=== PATIENT | female | born 1965 | race Caucasian/White ===

== ENCOUNTER 2016-09-13 11:06 | Emergency (ER) | payer SELFPAY ==
[2016-09-13] MEDS ORDERED: DEXAMETHASONE SOD PHOSPHATE INJ 4 MG/1 ML VIAL IM ONE (12:20)
[2016-09-13] MEDS ORDERED: ONDANSETRON 4 MG TAB.RAPDIS PO ONE (12:20)
--- NOTE | 2016-09-13 12:48 | ER Document Report ---
HPI - HPI Patient complains to provider of: Sore throat fever vomiting Onset: Other - 2 days Quality of pain: Achy Severity: Severe Pain Level: 5 Context: Patient presents emergency department with complaints of sore throat fever chills since Wednesday. Patient also reports she has been vomiting. Last vomited yesterday. Denies exposure to strep. Associated Symptoms: Fever, Vomiting, Sore throat Exacerbated by: Denies Relieved by: Denies Similar symptoms previously: No Recently seen / treated by doctor: No - DERM Skin Color: Normal Past Medical History - General Information source: Patient Last Menstrual Period: August 15, 2016 - Social History Smoking Status: Current Every Day Smoker Cigarette use (# per day): Yes Chew tobacco use (# tins/day): No Frequency of alcohol use: None Drug Abuse: None Occupation: Lives with: Family Family History: Reviewed & Not Pertinent Patient has suicidal ideation: No Patient has homicidal ideation: No - Medical History Medical History: Negative Renal/ Medical History: Denies: Hx Peritoneal Dialysis Surgical Hx: Negative Vertical Provider Document - CONSTITUTIONAL Agree With Documented VS: Yes Exam Limitations: No Limitations General Appearance: WD/WN, No Apparent Distress - nontoxic looking - INFECTION CONTROL TRAVEL OUTSIDE OF THE [place] IN LAST 30 DAYS: No - HEENT HEENT: Atraumatic, Normocephalic, Pharyngeal Exudate, Pharyngeal Erythema - No peritonsillar abscess good clear voice no trismus. negative: Conjuctival Injection, Pharyngeal Tenderness, Tympanic Membrane Red, Tympanic Membrane Bulging - NECK Neck: Normal Inspection, Supple. negative: Lymphadenopathy-Left, Lymphadenopathy-Right - RESPIRATORY Respiratory: Breath Sounds Normal, No Respiratory Distress O2 Sat by Pulse Oximetry: 98 - CARDIOVASCULAR Cardiovascular: Tachycardia - GI/ABDOMEN Gastrointestinal: Abdomen Soft, Abdomen Non-Tender - MUSCULOSKELETAL/EXTREMETIES Musculoskeletal/Extremeties: RHONDA CADENA - NEURO Level of Consciousness: Awake, Alert, Appropriate Motor/Sensory: No Motor Deficit - DERM Integumentary: Warm, Dry Course - Re-evaluation Re-evalutation: 09/13/16 Patient drinking two glasses of water without problems, instructed on negative strep test with throat culture pending we will treat with Zithromax she is allergic to penicillin. Patient instructed on pushing fluids follow-up with primary care provider or return here for further symptoms, trouble swallowing. She verbalized understanding. - Vital Signs Vital signs: Temp Pulse Resp BP Pulse Ox 99.6 F 121 H 18 153/86 H 98 09/13/16 11:19 09/13/16 11:19 09/13/16 11:19 09/13/16 11:19 09/13/16 11:19 Discharge - Discharge Clinical Impression: Sore throat, Tonsillar exudate, Elevated blood pressure reading Condition: Stable Disposition: HOME, SELF-CARE Instructions: Sore Throat ([facility]), Steroid Medication Injection, Acetaminophen Additional Instructions: *You have been evaluated for a sore throat, tonsillar exudate, elevated blood pressure reading *Take medication as prescribed *Warm salt water gargles and throat lozenges for comfort *Change toothbrush after two days of antibiotics *Do not let anyone drink/eat after you *Good hand washing *Monitor your temperature take tylenol as indicated *Follow-up with a primary care provider within one week for recheck *Return to ED for worsening condition change, needs Monitor your blood pressure. Your blood pressure was elevated today. This may be because you were anxious, in pain or because you need medication. It is important to follow up with your primary care provider for full evaluation. Prescriptions: Azithromycin [Zithromax 250 mg Tablet] 250 mg PO DAILY #5 tablet Forms: Elevated Blood Pressure, Return to Work
[2016-09-13] MEDS ORDERED: AZITHROMYCIN 250 MG TABLET PO ONE (13:10)
[2016-09-13] MEDS ORDERED: ACETAMINOPHEN 325 MG TABLET PO ONE (13:17)
[2016-09-13 14:04] VITALS: BP 156/81
== END 2016-09-13 14:04 | disposition home or self-care (01) ==
LOC: ER 11:06
DX: J02.9 Acute pharyngitis, unspecified (principal); R03.0 Elevated blood-pressure reading, without diagnosis of hypertension; R50.9 Fever, unspecified; R11.10 Vomiting, unspecified; F17.210 Nicotine dependence, cigarettes, uncomplicated
CPT/HCPCS: 99283; 96372; 87070; 87880; J1100; S0119

== ENCOUNTER → 2017-02-16 | Outpatient (CLI) | payer OTHER ==
--- NOTE | 2017-02-16 19:15 | RADIOLOGY REPORT (SQ) ---
EXAM DESCRIPTION: ANKLE LEFT COMPLETE COMPLETED DATE/TIME: 02/16/2017 6:54 pm REASON FOR STUDY: INJURY OF LEFT ANKLE, INITIAL ENCOUNTER COMPARISON: None. NUMBER OF VIEWS: Three views. TECHNIQUE: AP, lateral, and oblique radiographic images acquired of the left ankle. LIMITATIONS: None. FINDINGS: MINERALIZATION: Normal. BONES: No acute fracture or dislocation. There is some cortical irregularity at the level of the dis augie end of the medial malleolus which is not felt to represent a fracture. JOINTS: No effusions. SOFT TISSUES: No soft tissue swelling. No foreign body. OTHER: Minimal Achilles tendon spurring is identified. IMPRESSION: NEGATIVE STUDY OF THE LEFT ANKLE. NO RADIOGRAPHIC EVIDENCE OF ACUTE INJURY. TECHNICAL DOCUMENTATION: JOB ID: [id number] [employer]- All Rights Reserved
== END ==
LOC: RAD 18:32
PROVIDERS: ATTEND Nurse Practitioner Acute Care
DX: S99.912A Unspecified injury of left ankle, initial encounter (principal); X58.XXXA Exposure to other specified factors, initial encounter

== ENCOUNTER 2018-06-03 15:34 | Inpatient (IN) | payer SELFPAY ==
[2018-06-03] MEDS ORDERED: PREDNISONE 20 MG TABLET PO ONE (16:39)
[2018-06-03] MEDS ORDERED: IPRATROPIUM/ALBUTEROL 0.5-2.5 MG/3 ML AMPUL NEB ONE ×2 (16:39→18:43)
--- NOTE | 2018-06-03 16:43 | ER Document Report ---
HPI - HPI Pain Level: 2 - RESPIRATORY Respiratory: REPORTS: Coughing - REPRODUCTIVE Reproductive: DENIES: : <ELADIO WILSON - Last Filed: 06/03/18 18:22> - HPI Patient complains to provider of: difficulty breathing, ear drainage Context: 52-year-old female with hypertension and COPD which has been untreated for years because she does not have a primary care doctor presents to the emergency department for respiratory difficulty and bilateral ear drainage times 5 days. She complains of fevers, chills, sore throat productive cough, chest wall pain with coughing not at rest. She denies headache, nausea, vomiting, diarrhea, any other symptoms. <BRYAN ALCAZAR - Last Filed: 06/04/18 02:40> <MARTIN STEWARD - Last Filed: 06/04/18 05:13> - HPI Time Seen by Provider: 06/03/18 16:27 Past Medical History - Social History Smoking Status: Current Every Day Smoker Family History: Reviewed & Not Pertinent Patient has suicidal ideation: No Patient has homicidal ideation: No - Past Medical History Cardiac Medical History: Reports: Hx Hypertension Pulmonary Medical History: Reports: Hx COPD Renal/ Medical History: Denies: Hx Peritoneal Dialysis <ELADIO WILSON - Last Filed: 06/03/18 18:22> Vertical Provider Document - CONSTITUTIONAL Agree With Documented VS: Yes Exam Limitations: No Limitations, Physical Impairment General Appearance: No Apparent Distress - INFECTION CONTROL TRAVEL OUTSIDE OF THE [place] IN LAST 30 DAYS: No - HEENT HEENT: Atraumatic, Normocephalic. negative: Pharyngeal Exudate, Pharyngeal Tenderness, Pharyngeal Erythema, Tympanic Membrane Red, Tympanic Membrane Bulging - NECK Neck: Normal Inspection, Supple. negative: Lymphadenopathy-Left, Lymphadenopathy-Right - RESPIRATORY Respiratory: No Respiratory Distress, Chest Non-Tender, Rhonchi, Wheezing - CARDIOVASCULAR Cardiovascular: Regular Rate, Regular Rhythm, No Murmur - BACK Back: Normal Inspection - MUSCULOSKELETAL/EXTREMETIES Musculoskeletal/Extremeties: RHONDA CADENA - NEURO Level of Consciousness: Awake, Alert, Appropriate Motor/Sensory: No Motor Deficit - DERM Integumentary: Warm, Dry, No Rash <ELADIO WILSON - Last Filed: 06/03/18 18:22> Course - Re-evaluation Re-evalutation: 06/03/18 18:22 Spoke with radiologist regarding patient's x-ray report and need for additional imaging. Radiologist advises additional labs to further evaluate patient's symptoms given her history of COPD and noncompliance with antihypertensive medication. Does not feel that IV contrast would be beneficial and states that CT could be obtained noncontrast. - Vital Signs Vital signs: Temp Pulse Resp BP Pulse Ox 98.5 F 107 H 17 184/89 H 100 06/03/18 16:18 06/03/18 16:18 06/03/18 16:18 06/03/18 16:18 06/03/18 16:18 <ELADIO WILSON - Last Filed: 06/03/18 18:22> - Re-evaluation Re-evalutation: 06/03/18 18:41 Handoff completed, I took over care of the patient from Eladio Wilson. Discussed chest x-ray results studies and labs have been ordered. She does have diffuse end expiratory wheezing on exam and will order another DuoNeb. 06/03/18 18:43 06/03/18 20:06 CT chest resulted, consistent with atypical pneumonia. Will initiate antibiotics. Labs back and patient is hypokalemic at 2.4. Plan is to give 3 runs of potassium chloride 20 mEq and 40 mEq p.o. Patient will be transferred over to the main side. Plan is to obtain an EKG and put her on cardiac monitoring here in the interim. 06/03/18 20:[address] Bueno I made her aware of patient's penicillin allergy and reaction that her throat closes up and she cannot breeze. Based on available literature benefits outweigh the risks and I will give the Rocephin 500 mg IV 1 time as patient will be continuously monitored and transferred to [facility] main side. 06/04/18 02:41 Dr. Steward ultimately assumed care of the patient. I briefly discussed patient with him after his course of treatments. - Vital Signs Vital signs: Temp Pulse Resp BP Pulse Ox 98.5 F 107 H 17 184/89 H 100 06/03/18 16:18 06/03/18 16:18 06/03/18 16:18 06/03/18 16:18 06/03/18 16:18 - Laboratory Result Diagrams: 06/03/18 19:17 06/03/18 19:17 <BRYAN ALCAZAR - Last Filed: 06/04/18 02:40> - Re-evaluation Re-evalutation: 06/04/18 03:44 Patient continues to have desaturations and her oxygen. I placed her on nasal cannula. Her O2 saturations are going down to 87%. We will give another breat geno treatment. I suspect that she most likely will require admission based on her recurrent oxygen desaturations. - Vital Signs Vital signs: Temp Pulse Resp BP Pulse Ox 98.6 F 114 H 19 140/72 H 91 L 06/03/18 21:14 06/03/18 21:14 06/04/18 00:01 06/04/18 03:00 06/04/18 03:01 - Laboratory Result Diagrams: 06/03/18 19:17 06/03/18 19:17 Laboratory results interpreted by me: 06/03/18 06/03/18 19:17 19:17 WBC 14.2 H RDW 14.4 H Seg Neutrophils % 89.1 H Lymphocytes % 6.5 L Absolute Neutrophils 12.7 H Sodium 136.3 L Potassium 2.4 L* Chloride 96 L Glucose 153 H Direct Bilirubin 0.9 H AST 39 H Alkaline Phosphatase 130 H <MARTIN STEWARD - Last Filed: 06/04/18 05:13> Discharge <ELADIO WILSON - Last Filed: 06/03/18 18:22> <BRYAN ALCAZAR - Last Filed: 06/04/18 02:40> - Discharge Unit Admitted: Telemetry <MARTIN STEWARD - Last Filed: 06/04/18 05:13> - Discharge Clinical Impression: Hypokalemia Pneumonia Qualifiers: Pneumonia type: due to unspecified organism Laterality: bilateral Lung location: unspecified part of lung Qualified Code(s): J18.9 - Pneumonia, unspecified organism Condition: Stable Disposition: ADMITTED OBSERVATION Referrals: LUIS CARLOS SCHNEIDER NP [Primary Care Provider] - Follow up as needed
[2018-06-03] MEDS: ALBUTEROL SULFATE 0.083% NEB 2.5 MG/3 ML AMPUL NEB SCH ×2 (16:48→17:43)
--- NOTE | 2018-06-03 18:01 | RADIOLOGY REPORT (SQ) ---
EXAM DESCRIPTION: CHEST 2 VIEWS COMPLETED DATE/TIME: 06/03/2018 5:34 pm REASON FOR STUDY: cough COMPARISON: 09/11/2009 EXAM PARAMETERS: NUMBER OF VIEWS: two views TECHNIQUE: Digital Frontal and Lateral radiographic views of the chest acquired. RADIATION DOSE: NA LIMITATIONS: none FINDINGS: LUNGS AND PLEURA: Minimal bibasilar fine heterogeneous and interstitial opacity. MEDIASTINUM AND HILAR STRUCTURES: No masses or contour abnormalities. HEART AND VASCULAR STRUCTURES: Heart normal size. No evidence for failure. BONES: No acute findings. HARDWARE: None in the chest. OTHER: No other significant finding. IMPRESSION: Minimal bibasilar fine heterogeneous and interstitial opacity, of uncertain acute signif icance. This may reflect mild infection or edema or alternately chronic interstitial change. CT can be used to further evaluate if desired and as indicated by clinical signs or symptoms. . TECHNICAL DOCUMENTATION: JOB ID: [id number] [employer]- All Rights Reserved Reading location - IP/workstation name: [email or web address]
[2018-06-03] MEDS ORDERED: ALBUTEROL SULFATE 0.083% NEB 2.5 MG/3 ML AMPUL NEB ONE (18:17)
--- NOTE | 2018-06-03 19:21 | RADIOLOGY REPORT (SQ) ---
EXAM DESCRIPTION: CT CHEST WITHOUT COMPLETED DATE/TIME: 06/03/2018 7:00 pm REASON FOR STUDY: cough, dyspnea COMPARISON: Chest radiograph 06/03/2018 TECHNIQUE: CT scan performed of the chest without intravenous contrast. Images reviewed with lung, soft tissue and bone windows. Reconstructed coronal and sagittal MPR images reviewed. All images st ored on PACS. All CT scanners at this facility use dose modulation, iterative reconstruction, and/or weight based d osing when appropriate to reduce radiation dose to as low as reasonably achievable (ALARA). [facility]: Dose Right [facility]: CareDose [facility]: Dose Right [facility]: Teradose 4D [facility]: Smart [employer] RADIATION DOSE: CT Rad equipment meets quality standard of care and radiation dose reduction techniq ues were employed. CTDIvol: 5.3 mGy. DLP: 203 mGy-cm. mGy. LIMITATIONS: No technical limitations. FINDINGS: LUNGS AND PLEURA: Diffuse reticulonodular densities with relative subpleural sparing are s een involving the right upper, right middle, and right lower lobe more so than the left upper and low er lobes. There is no pneumothorax. There is no pleural effusion. HILAR AND MEDIASTINAL STRUCTURES: No identified masses or abnormal nodes. No obvious aneurysm. HEART AND VASCULAR STRUCTURES: No aneurysm. No pericardial effusion. UPPER ABDOMEN: No significant findings. Limited exam. THYROID AND OTHER SOFT TISSUES: No masses. No adenopathy. BONES: No significant finding. HARDWARE: None in the chest. OTHER: No other significant findings. IMPRESSION: Constellation of findings are most consistent with a multi lobar atypical pneumonia. TECHNICAL DOCUMENTATION: JOB ID: [id number] Quality ID # [id number]: Final reports with documentation of one or more dose reduction techniques (e.g., Au tomated exposure control, adjustment of the mA and/or kV according to patient size, use of iterative reconstruction technique) 2010 [employer]- All Rights Reserved Reading location - IP/workstation name: [email or web address]
[2018-06-03 19:39] LABS: ABSOLUTE BASOPHILS # (AUTO) 0.1 10^3/uL (0.0-0.2); ABSOLUTE LYMPHOCYTES (AUTO) 0.9 10^3/uL (0.5-4.7); ABSOLUTE MONOCYTES (AUTO) 0.6 10^3/uL (0.1-1.4); ABSOLUTE NEUT (AUTO) 12.7 10^3/uL (1.7-8.2); BASOPHILS % (AUTO) 0.5 % (0-2); HEMATOCRIT 40.1 % (36.0-47.0); HEMOGLOBIN 13.8 g/dL (12.0-15.5); LYMPHOCYTES % (AUTO) 6.5 % (13-45); MEAN CORPUSCULAR HEMOGLOBIN 28.7 pg (27.0-33.4); MEAN CORPUSCULAR HGB CONC 34.3 g/dL (32.0-36.0); MEAN CORPUSCULAR VOLUME 84 fl (80-97); MONOCYTES % (AUTO) 3.9 % (3-13); PLATELET COUNT 209 10^3/uL (150-450); RED BLOOD COUNT 4.79 10^6/uL (3.72-5.28); RED CELL DISTRIBUTION WIDTH 14.4 % (11.5-14.0); SEGMENTED NEUTROPHILS % (AUTO) 89.1 % (42-78); TOTAL CELLS COUNTED % (AUTO) 100 %; WHITE BLOOD COUNT 14.2 10^3/uL (4.0-10.5)
[2018-06-03 19:55] LABS: ALANINE AMINOTRANSFERASE 42 U/L (9-52); ALBUMIN 4.1 g/dL (3.5-5.0); ALKALINE PHOSPHATASE 130 U/L (38-126); ANION GAP 14 (5-19); ASPARTATE AMINO TRANSFERASE 39 U/L (14-36); BILIRUBIN,DIRECT 0.9 mg/dL (0.0-0.4); BILIRUBIN,TOTAL 1.3 mg/dL (0.2-1.3); BLOOD UREA NITROGEN 7 mg/dL (7-20); CALCIUM 9.1 mg/dL (8.4-10.2); CARBON DIOXIDE 26 mmol/L (22-30); CHLORIDE 96 mmol/L (98-107); GLUCOSE 153 mg/dL (75-110); SODIUM 136.3 mmol/L (137-145); TOTAL PROTEIN 7.5 g/dL (6.3-8.2)
[2018-06-03 19:59] LABS: POTASSIUM 2.4 mmol/L (3.6-5.0)
[2018-06-03] MEDS ORDERED: POTASSIUM CHLORIDE 10 MEQ CAPSULE.ER PO ONE (20:02)
[2018-06-03] MEDS ORDERED: CEFTRIAXONE INJ 500 MG VIAL IV ONE (20:14)
[2018-06-03] MEDS ORDERED: DOXYCYCLINE HYCLATE INJ 100 MG VIAL IV ONE (20:18)
[2018-06-03] MEDS: POTASSI CL 20 MEQ/50 ML RIDER 20 MEQ/50 ML RTUPB IV SCH (20:49)
[2018-06-03] MEDS ORDERED: NORMAL SALINE 1000 ML 1,000 ML IV ONE (21:08)
[2018-06-03] MEDS ORDERED: CEFTRIAXONE INJ 500 MG VIAL ONE (22:57)
[2018-06-04] MEDS: POTASSI CL 20 MEQ/50 ML RIDER 20 MEQ/50 ML RTUPB IV SCH ×2 (01:28)
[2018-06-04] MEDS ORDERED: IPRATROPIUM/ALBUTEROL 0.5-2.5 MG/3 ML AMPUL NEB ONE (02:19)
[2018-06-04] MEDS: MAGNESIUM SULFATE/D5W 1 GM/100 ML RTUPB IV SCH ×2 (02:29→03:29)
[2018-06-04] MEDS ORDERED: ALBUTEROL SULFATE 0.083% NEB 2.5 MG/3 ML AMPUL NEB ONE (03:45)
[2018-06-04] MEDS ORDERED: METHYLPREDNISOLONE INJ 125 MG/2 ML SDV IV ONE (03:45)
[2018-06-04] MEDS ORDERED: ONDANSETRON 4 MG TAB.RAPDIS PO PRN (05:25)
[2018-06-04] MEDS ORDERED: MAGNESIUM HYDROXIDE SUSP 30 ML UDCUP PO PRN (05:25)
[2018-06-04] MEDS ORDERED: ONDANSETRON HCL INJ/PF 4 MG/2 ML SDV IV PRN (05:25)
[2018-06-04] MEDS ORDERED: MAG HYDROX/AL HYDROX/SIMETH SUSP 30 ML UDCUP PO PRN (05:25)
[2018-06-04] MEDS ORDERED: NALBUPHINE HCL INJ 10 MG/1 ML AMPULE IV PRN (05:31)
[2018-06-04] MEDS ORDERED: ACETAMINOPHEN 325 MG TABLET PO PRN (05:31)
--- NOTE | 2018-06-04 06:17 | PDOC H&P ---
History of Present Illness Admission Date/PCP: LUIS CARLOS SCHNEIDER NP Patient complains of: Dyspnea History of Present Illness: CHARMAINE PALMA is a 52 year old female who presented to the emergency room with a 6-day history of progressively worsening dyspnea with cough. She admits that she began having moderate dyspnea 6 days ago, only occurring with exertion and it has gradually progressed to severe dyspnea for the last 2 days being present at rest and with exertion. In the emergency room she her dyspnea has been accompanied by a harsh paroxysmal cough that is been productive of small amounts of thin yellowish mucus at times. Her cough has been increasing in frequency and in intensity to the point where it is now also severe. She denies all other accompanying symptoms with the exception of anorexia and polydipsia due to increased thirst since the onset of the illness. She denies prior similar episodes and has not identified any aggravating or ameliorating factors for her dyspnea other than she feels more short of breath and has an increased cough wi th any attempted smoking cigarettes. In the emergency room she was found to be significantly hypoxic and required continued oxygen support despite multiple nebulizer treatments and the administration of Solu-Medrol. Because of the patient's hypoxic respiratory failure she was admitted to the hospital for further evaluation and treatment. Past Medical History Cardiac Medical History: Reports: Hypertension - Not on medication Pulmonary Medical History: Reports: Bronchitis, Chronic Obstructive Pulmonary Disease (COPD) Denies: Asthma, Intubation, Respiratory Failure EENT Medical History: Denies: Cataracts, Nose - Epistaxis Neurological Medical History: Denies: Hemorrhagic CVA, Ischemic CVA, Multiple Sclerosis, Seizures Endocrine Medical History: Denies: Diabetes Mellitus Type 1, Diabetes Mellitus Type 2, Hyperthyroidism, Hypothyroidism, Obesity Renal/ Medical History: Denies: Chronic Kidney Disease, Nephrolithiasis Malignancy Medical History: Reports: None GI Medical History: Denies: Cirrhosis, Gastroesophageal Reflux Disease, Hepatitis Musculoskeltal Medical History: Denies: Arthritis, Gout Skin Medical History: Denies: Eczema, Psoriasis Psychiatric Medical History: Reports: Tobacco Dependency Denies: Alcohol Dependency, Substance Abuse Traumatic Medical History: Reports: None Hematology: Denies: Anemia, Bleeding Tendencies Infectious Medical History: Reports: None Past Surgical History Past Surgical History: Reports: Other - Nasal surgery Social History Information Source: Patient Lives with: Spouse/Significant other Smoking Status: Current Every Day Smoker Frequency of Alcohol Use: None Hx Recreational Drug Use: No Drugs: None Hx Prescription Drug Abuse: No - Advance Directive Resuscitation Status: Full Code Surrogate healthcare decision maker:: Angelique Hanley Family History Family History: CAD, DM, Malignancy Parental Family History Reviewed: Yes Children Family History Reviewed: No Sibling(s) Family History Reviewed.: Yes Medication/Allergy Home Medications: Azithromycin [Zithromax 250 mg Tablet] 250 mg PO DAILY #5 tablet 09/13/16 Allergies/Adverse Reactions: Penicillins Allergy (Verified 09/13/16 11:17) Review of Systems Constitutional: PRESENT: anorexia. ABSENT: chills, fever(s) Eyes: ABSENT: visual disturbances, other - Eye pain Ears: ABSENT: hearing changes, other - Ear pain Nose, Mouth, and Throat: ABSENT: mouth pain, sore throat Cardiovascular: PRESENT: as per HPI, dyspnea on exertion. ABSENT: chest pain, edema, orthropnea, palpitations Respiratory: PRESENT: as per HPI, cough, dyspnea, sputum. ABSENT: hemoptysis Gastrointestinal: PRESENT: as per HPI, other - Anorexia with current illness. ABSENT: abdominal pain, constipation, diarrhea, nausea, vomiting Genitourinary: ABSENT: dysuria, hematuria Musculoskeletal: ABSENT: deformity, joint swelling Integumentary: ABSENT: pruritus, rash Neurological: ABSENT: confusion, convulsions, memory loss Psychiatric: ABSENT: anxiety, depression Endocrine: PRESENT: as per HPI, polydipsia - Polydipsia since the onset of her illness. ABSENT: cold intolerance, heat intolerance Hematologic/Lymphatic: ABSENT: easy bleeding, easy bruising Physical Exam Vital Signs: Temp Pulse Resp BP Pulse Ox 98.6 F 114 H 19 140/72 H 91 L 06/03/18 21:14 06/03/18 21:14 06/04/18 00:01 06/04/18 03:00 06/04/18 03:01 Intake & Output 06/02/18 06/03/18 06/04/18 23:59 23:59 23:59 Intake Total 50 37 Balance 50 37 Weight 55.3 kg General appearance: PRESENT: no acute distress, cooperative, other - Wearing nasal cannula with oxygen at 3 L/min Head exam: PRESENT: atraumatic, normocephalic Eye exam: PRESENT: conjunctiva pink, EOMI. ABSENT: scleral icterus Ear exam: PRESENT: normal external ear exam. ABSENT: bleeding, drainage Mouth exam: PRESENT: dry mucosa, neck supple Neck exam: ABSENT: JVD, thyromegaly, tracheal deviation Respiratory exam: PRESENT: decreased breath sounds - Mildly decreased breath sounds throughout all huerta consistent with mild to moderate COPD, prolonged expiratory phas - Moderately prolonged expiratory phase present throughout all huerta, symmetrical, wheezes - Expiratory wheezes are noted in all huerta Cardiovascular exam: PRESENT: RRR. ABSENT: clicks, gallop, rubs Pulses: PRESENT: normal radial pulses, normal dorsalis pedis pul Vascular exam: PRESENT: normal capillary refill. ABSENT: pallor GI/Abdominal exam: PRESENT: normal bowel sounds, soft Rectal exam: PRESENT: deferred Extremities exam: ABSENT: joint swelling, pedal edema Musculoskeletal exam: PRESENT: full ROM, normal inspection Neurological exam: PRESENT: alert, oriented to person, oriented to place, oriented to time, oriented to situation, CN II-XII grossly intact. ABSENT: motor sensory deficit Psychiatric exam: PRESENT: appropriate affect, normal mood Skin exam: PRESENT: dry, intact, warm. ABSENT: jaundice, rash, urticaria Results Laboratory Results: 06/03/18 19:17 06/03/18 19:17 06/03/18 06/03/18 19:17 19:17 WBC 14.2 H RBC 4.79 Hgb 13.8 Hct 40.1 MCV 84 MCH 28.7 MCHC 34.3 RDW 14.4 H Plt Count 209 Seg Neutrophils % 89.1 H Lymphocytes % 6.5 L Monocytes % 3.9 Eosinophils % 0.0 Basophils % 0.5 Absolute Neutrophils 12.7 H Absolute Lymphocytes 0.9 Absolute Monocytes 0.6 Absolute Eosinophils 0.0 Absolute Basophils 0.1 Sodium 136.3 L Potassium 2.4 L* Chloride 96 L Carbon Dioxide 26 Anion Gap 14 BUN 7 Creatinine 0.55 Est GFR ( Amer) > 60 Est GFR (Non-Af Amer) > 60 Glucose 153 H Calcium 9.1 Total Bilirubin 1.3 AST 39 H ALT 42 Alkaline Phosphatase 130 H Total Protein 7.5 Albumin 4.1 06/03/18 19:17 NT-Pro-B Natriuret Pep 121 Impressions: Chest X-Ray 06/03/18 16:40 IMPRESSION: Minimal bibasilar fine heterogeneous and interstitial opacity, of uncertain acute significance. This may reflect mild infection or edema or alternately chronic interstitial change. CT can be used to further evaluate if desired and as indicated by clinical signs or symptoms. . Chest CT 06/03/18 18:19 IMPRESSION: Constellation of findings are most consistent with a multi lobar atypical pneumonia. Assessment & Plan - Diagnosis (1) Acute respiratory failure with hypoxia Is this a current diagnosis for this admission?: Yes Plan: Patient received supplemental oxygen via nasal cannula and/or other means as necessary to maintain an adequate oxygen saturation. (2) Acute interstitial pneumonia Is this a current diagnosis for this admission?: Yes Plan: Patient has an acute interstitial pneumonia which is resulting in exacerbation of her chronic obstructive pulmonary disease. This will be treated with Levaquin 500 mg p.o. daily times 7 days. Additionally her chronic obstructive pulmonary disease will be treated with albuterol, Xopenex, Atrovent and Pulmicort nebulizer therapy as well as intravenous Solu-Medrol and supplemental oxygen as previously described. Patient also receive additional symptomatic and supportive cares as required. Daily CBCs will be used to follow the patient's course. (3) Hypokalemia Is this a current diagnosis for this admission?: Yes Plan: Patient's hypokalemia will be corrected with oral potassium supplementation after completion of a K rider in the emergency room. Her potassium levels will be followed on a daily basis with a metabolic profile. Additionally daily magnesium levels will be obtained. (4) Tobacco use disorder, moderate, dependence Is this a current diagnosis for this admission?: Yes Plan: Smoking cessation is advised and counseled briefly. A nicotine replacement patch will be available for the patient if required. (5) Hypertension Qualifiers: Hypertension type: essential hypertension Qualified Code(s): I10 - Essential (primary) hypertension Is this a current diagnosis for this admission?: Yes Plan: Patient is not currently on therapy for hypertension but her blood pressure will be monitored closely during her hospital course and if necessary therapy will be initiated. - Time Time Spent: 30 to 50 Minutes Critical Time spent with patient: Less than 15 minutes Smoking Cessation Education: 3 to 10 minutes Anticipated discharge: Home - Inpatient Certification Based on my medical assessment, after consideration of the patient's comorbidities, presenting symptoms, or acuity I expect that the services needed warrant INPATIENT care.: Yes I certify that my determination is in accordance with my understanding of Medicare's requirements for reasonable and necessary INPATIENT services [42 CFR 412.3e].: Yes Medical Necessity: Need Close Monitoring Due to Risk of Patient Decompensation, Need for Nebulizer Therapy and Monitoring of Response, Risk of Complication if Not Cared For in Hospital
[2018-06-04] MEDS: HEPARIN SOD (PORCINE) 5,000 UNIT/ML 1 ML SYRINGE SUBCUT SCH ×3 (06:30→22:21)
[2018-06-04] MEDS: METHYLPREDNISOLONE INJ 40 MG/1 ML SDV IV SCH ×3 (06:31→17:07)
[2018-06-04] MEDS: LEVOFLOXACIN 500 MG TABLET PO SCH (06:31)
[2018-06-04] MEDS: POTASSIUM CHLORIDE 10 MEQ CAPSULE.ER PO SCH ×2 (08:25→17:06)
[2018-06-04] MEDS: IPRATROPIUM BROMIDE 0.02% NEB 0.5 MG/2.5 ML AMPUL NEB SCH ×2 (09:13→16:04)
[2018-06-04] MEDS: LEVALBUTEROL HCL NEB 1.25 MG/3 ML AMPUL NEB SCH ×2 (09:13→16:04)
[2018-06-04] MEDS: BUDESONIDE NEB 0.5 MG/2 ML AMPUL NEB SCH ×2 (09:14→20:50)
[2018-06-04 09:42] LABS: ABSOLUTE LYMPHOCYTES (AUTO) 1.1 10^3/uL (0.5-4.7); ABSOLUTE MONOCYTES (AUTO) 0.9 10^3/uL (0.1-1.4); ABSOLUTE NEUT (AUTO) 11.7 10^3/uL (1.7-8.2); BASOPHILS % (AUTO) 0.2 % (0-2); EOSINOPHILS % (AUTO) 0.1 % (0-6); HEMATOCRIT 37.3 % (36.0-47.0); HEMOGLOBIN 12.7 g/dL (12.0-15.5); LYMPHOCYTES % (AUTO) 8.2 % (13-45); MEAN CORPUSCULAR HEMOGLOBIN 28.6 pg (27.0-33.4); MEAN CORPUSCULAR HGB CONC 34.1 g/dL (32.0-36.0); MEAN CORPUSCULAR VOLUME 84 fl (80-97); MONOCYTES % (AUTO) 6.2 % (3-13); PLATELET COUNT 234 10^3/uL (150-450); RED BLOOD COUNT 4.45 10^6/uL (3.72-5.28); RED CELL DISTRIBUTION WIDTH 14.5 % (11.5-14.0); SEGMENTED NEUTROPHILS % (AUTO) 85.3 % (42-78); TOTAL CELLS COUNTED % (AUTO) 100 %; WHITE BLOOD COUNT 13.7 10^3/uL (4.0-10.5)
[2018-06-04 09:52] LABS: ANION GAP 9 (5-19); BLOOD UREA NITROGEN 10 mg/dL (7-20); CALCIUM 8.9 mg/dL (8.4-10.2); CARBON DIOXIDE 23 mmol/L (22-30); CHLORIDE 108 mmol/L (98-107); GLUCOSE 140 mg/dL (75-110)
[2018-06-04] MEDS: DOCUSATE SODIUM 100 MG CAPSULE PO SCH ×2 (10:19→17:06)
[2018-06-04] MEDS: FAMOTIDINE 20 MG TABLET PO SCH ×2 (10:19→22:21)
[2018-06-04] MEDS ORDERED: NICOTINE 14 MG/24 HR PATCH.TD24 TD ONE (17:15)
--- NOTE | 2018-06-04 20:06 | EKG REPORT ---
SEVERITY:- ABNORMAL ECG - SINUS TACHYCARDIA MULTIFORM VENTRICULAR PREMATURE COMPLEXES REPOL ABNRM SUGGESTS ISCHEMIA, ANT-LAT LEADS : Confirmed by: Shon Soni 04-Jun-2018 20:04:47
[2018-06-04] MEDS: ALBUTEROL SULFATE 0.083% NEB 2.5 MG/3 ML AMPUL NEB PRN (20:50)
[2018-06-05] MEDS ORDERED: METOPROLOL SUCCINATE 50 MG TAB.SR.24H PO ONE (00:30)
[2018-06-05] MEDS: LEVALBUTEROL HCL NEB 1.25 MG/3 ML AMPUL NEB SCH ×3 (00:45→16:25)
[2018-06-05] MEDS: IPRATROPIUM BROMIDE 0.02% NEB 0.5 MG/2.5 ML AMPUL NEB SCH ×3 (00:45→16:25)
[2018-06-05 05:23] LABS: ABSOLUTE LYMPHOCYTES (AUTO) 2.1 10^3/uL (0.5-4.7); ABSOLUTE MONOCYTES (AUTO) 1.1 10^3/uL (0.1-1.4); ABSOLUTE NEUT (AUTO) 10.8 10^3/uL (1.7-8.2); BASOPHILS % (AUTO) 0.2 % (0-2); HEMATOCRIT 36.6 % (36.0-47.0); HEMOGLOBIN 12.3 g/dL (12.0-15.5); MEAN CORPUSCULAR HEMOGLOBIN 28.5 pg (27.0-33.4); MEAN CORPUSCULAR HGB CONC 33.7 g/dL (32.0-36.0); MEAN CORPUSCULAR VOLUME 85 fl (80-97); MONOCYTES % (AUTO) 7.8 % (3-13); PLATELET COUNT 239 10^3/uL (150-450); RED BLOOD COUNT 4.33 10^6/uL (3.72-5.28); RED CELL DISTRIBUTION WIDTH 14.6 % (11.5-14.0); TOTAL CELLS COUNTED % (AUTO) 100 %
[2018-06-05] MEDS: HEPARIN SOD (PORCINE) 5,000 UNIT/ML 1 ML SYRINGE SUBCUT SCH ×3 (05:45→21:48)
[2018-06-05] MEDS: LEVOFLOXACIN 500 MG TABLET PO SCH (05:45)
[2018-06-05 05:47] LABS: ANION GAP 11 (5-19); BLOOD UREA NITROGEN 12 mg/dL (7-20); CALCIUM 9.8 mg/dL (8.4-10.2); CARBON DIOXIDE 25 mmol/L (22-30); CHLORIDE 106 mmol/L (98-107); GLUCOSE 214 mg/dL (75-110); POTASSIUM 4.4 mmol/L (3.6-5.0); SODIUM 141.5 mmol/L (137-145); TRIGLYCERIDES 180 mg/dL (<150)
[2018-06-05 05:58] LABS: DIRECT LDL 129 mg/dL (<100)
[2018-06-05 06:02] LABS: FREE T3 2.74 pg/mL (2.77-5.27); FREE T4 (FREE THYROXINE) 1.46 ng/dL (0.78-2.19)
[2018-06-05 06:16] LABS: THYROID STIMULATING HORMONE 0.36 uIU/mL (0.47-4.68)
[2018-06-05] MEDS: POTASSIUM CHLORIDE 10 MEQ CAPSULE.ER PO SCH ×2 (08:34→18:01)
[2018-06-05] MEDS: BUDESONIDE NEB 0.5 MG/2 ML AMPUL NEB SCH ×2 (08:59→21:05)
[2018-06-05] MEDS: LISINOPRIL 10 MG TABLET PO SCH (09:19)
[2018-06-05] MEDS: FAMOTIDINE 20 MG TABLET PO SCH ×2 (09:19→21:48)
[2018-06-05] MEDS: DOCUSATE SODIUM 100 MG CAPSULE PO SCH ×2 (09:19→18:01)
[2018-06-05] MEDS: METOPROLOL SUCCINATE 50 MG TAB.SR.24H PO SCH (09:20)
[2018-06-05] MEDS: NICOTINE 14 MG/24 HR PATCH.TD24 TD SCH (09:20)
[2018-06-05] MEDS: HYDRALAZINE HCL INJ/PF 20 MG/1 ML SDV IV PRN (13:41)
--- NOTE | 2018-06-05 14:28 | PDOC PROGRESS REPORT ---
Subjective Progress Note for:: 06/05/18 Subjective:: Overnight had episode of hypertension (SBP 190s) with run of SVT. Denies chest pain, palpitation. Did not profuse night sweats at time of episode. Received Metoprolol PO which helped. This AM, patient states that she is feeling much better. She is no longer requiring supplemental O2. Denies chest pain, abdominal pain, SOB, NV. Reason For Visit: ACUTE HYPOXIC RESPIRATORY FAILURE Physical Exam Vital Signs: Temp Pulse Resp BP Pulse Ox 97.9 F 67 18 179/83 H 100 06/05/18 11:22 06/05/18 11:22 06/05/18 11:22 06/05/18 11:22 06/05/18 11:22 Intake & Output 06/04/18 06/05/18 06/06/18 06:59 06:59 06:59 Intake Total 1337 2737 355 Balance 1337 2737 355 Weight 55.3 kg 58.1 kg General appearance: PRESENT: no acute distress, cooperative, well-developed, well-nourished Mouth exam: PRESENT: moist Respiratory exam: PRESENT: decreased breath sounds, unlabored Cardiovascular exam: PRESENT: +S1, +S2. ABSENT: tachycardia GI/Abdominal exam: PRESENT: soft. ABSENT: tenderness Extremities exam: PRESENT: full ROM Musculoskeletal exam: PRESENT: ambulatory Neurological exam: PRESENT: alert, awake, CN II-XII grossly intact Psychiatric exam: PRESENT: appropriate affect, normal mood Skin exam: PRESENT: dry, intact Results Laboratory Results: 06/05/18 04:43 06/05/18 04:43 06/05/18 06/05/18 06/05/18 04:43 04:43 04:43 WBC 14.0 H RBC 4.33 Hgb 12.3 Hct 36.6 MCV 85 MCH 28.5 MCHC 33.7 RDW 14.6 H Plt Count 239 Seg Neutrophils % 77.0 Lymphocytes % 15.0 Monocytes % 7.8 Eosinophils % 0.0 Basophils % 0.2 Absolute Neutrophils 10.8 H Absolute Lymphocytes 2.1 Absolute Monocytes 1.1 Absolute Eosinophils 0.0 Absolute Basophils 0.0 Sodium 141.5 Potassium 4.4 Chloride 106 Carbon Dioxide 25 Anion Gap 11 BUN 12 Creatinine 0.57 Est GFR ( Amer) > 60 Est GFR (Non-Af Amer) > 60 Glucose 214 H Calcium 9.8 Magnesium 2.1 Triglycerides 180 H Cholesterol 167.90 LDL Cholesterol Direct 129 H VLDL Cholesterol 36.0 H HDL Cholesterol 20 L TSH 0.36 L Free T4 1.46 Free T3 pg/mL 2.74 L 06/03/18 16:45 Throat Throat Culture - Final NORMAL VIRGEN 06/03/18 17:45 Sputum Gram Stain - Final 06/03/18 17:45 Sputum Sputum Culture - Final Morax.(Branhamella)Catarrhalis Group F Beta Streptococcus Normal Virgen 06/03/18 19:17 NT-Pro-B Natriuret Pep 121 Impressions: Chest X-Ray 06/03/18 16:40 IMPRESSION: Minimal bibasilar fine heterogeneous and interstitial opacity, of uncertain acute significance. This may reflect mild infection or edema or alternately chronic interstitial change. CT can be used to further evaluate if desired and as indicated by clinical signs or symptoms. . Chest CT 06/03/18 18:19 IMPRESSION: Constellation of findings are most consistent with a multi lobar atypical pneumonia. Assessment & Plan - Diagnosis (1) Acute respiratory failure with hypoxia Is this a current diagnosis for this admission?: Yes Plan: Improved with current regimen, now off supplemental O2 - Current Levaquin 500mg qAM until 06/11 - Continue Symbicort, Xopenex q8 hours, and Albuterol PRN (2) Acute interstitial pneumonia Is this a current diagnosis for this admission?: Yes Plan: Improved on exam - Continue week long course of Levaquin (3) Hypertension Qualifiers: Hypertension type: essential hypertension Qualified Code(s): I10 - Essential (primary) hypertension Is this a current diagnosis for this admission?: Yes (4) Hypokalemia Is this a current diagnosis for this admission?: Yes Plan: Resolved, K 4.4 today (06/05) (5) Tobacco use disorder, moderate, dependence Is this a current diagnosis for this admission?: Yes Plan: Encouraged to stop smoking - Nicotene patch ordered - Time Time Spent with patient: Less than 15 minutes Smoking Cessation Education: 3 to 10 minutes Anticipated discharge: Home Within: within 24 hours
[2018-06-05] MEDS: ALBUTEROL SULFATE 0.083% NEB 2.5 MG/3 ML AMPUL NEB PRN (21:05)
[2018-06-06] MEDS: HYDRALAZINE HCL INJ/PF 20 MG/1 ML SDV IV PRN (00:24)
[2018-06-06] MEDS: LEVALBUTEROL HCL NEB 1.25 MG/3 ML AMPUL NEB SCH ×2 (00:40→08:19)
[2018-06-06] MEDS: IPRATROPIUM BROMIDE 0.02% NEB 0.5 MG/2.5 ML AMPUL NEB SCH ×2 (00:40→08:19)
[2018-06-06] MEDS: HEPARIN SOD (PORCINE) 5,000 UNIT/ML 1 ML SYRINGE SUBCUT SCH (06:31)
[2018-06-06] MEDS: LEVOFLOXACIN 500 MG TABLET PO SCH (06:32)
[2018-06-06 06:46] LABS: ABSOLUTE BASOPHILS # (AUTO) 0.1 10^3/uL (0.0-0.2); ABSOLUTE MONOCYTES (AUTO) 0.8 10^3/uL (0.1-1.4); ABSOLUTE NEUT (AUTO) 6.7 10^3/uL (1.7-8.2); BASOPHILS % (AUTO) 0.6 % (0-2); EOSINOPHILS % (AUTO) 0.4 % (0-6); HEMATOCRIT 39.4 % (36.0-47.0); HEMOGLOBIN 13.3 g/dL (12.0-15.5); LYMPHOCYTES % (AUTO) 34.1 % (13-45); MEAN CORPUSCULAR HEMOGLOBIN 28.5 pg (27.0-33.4); MEAN CORPUSCULAR HGB CONC 33.6 g/dL (32.0-36.0); MEAN CORPUSCULAR VOLUME 85 fl (80-97); MONOCYTES % (AUTO) 7.1 % (3-13); PLATELET COUNT 316 10^3/uL (150-450); RED BLOOD COUNT 4.65 10^6/uL (3.72-5.28); RED CELL DISTRIBUTION WIDTH 14.5 % (11.5-14.0); SEGMENTED NEUTROPHILS % (AUTO) 57.8 % (42-78); TOTAL CELLS COUNTED % (AUTO) 100 %; WHITE BLOOD COUNT 11.6 10^3/uL (4.0-10.5)
[2018-06-06 07:01] LABS: ANION GAP 10 (5-19); BLOOD UREA NITROGEN 16 mg/dL (7-20); CALCIUM 9.5 mg/dL (8.4-10.2); CARBON DIOXIDE 27 mmol/L (22-30); CHLORIDE 106 mmol/L (98-107); GLUCOSE 99 mg/dL (75-110); POTASSIUM 5.2 mmol/L (3.6-5.0); SODIUM 142.8 mmol/L (137-145)
[2018-06-06] MEDS: BUDESONIDE NEB 0.5 MG/2 ML AMPUL NEB SCH (08:19)
[2018-06-06] MEDS: LISINOPRIL 10 MG TABLET PO SCH (09:16)
[2018-06-06] MEDS: DOCUSATE SODIUM 100 MG CAPSULE PO SCH (09:16)
[2018-06-06] MEDS: POTASSIUM CHLORIDE 10 MEQ CAPSULE.ER PO SCH (09:16)
[2018-06-06] MEDS: METOPROLOL SUCCINATE 50 MG TAB.SR.24H PO SCH (09:16)
[2018-06-06] MEDS: FAMOTIDINE 20 MG TABLET PO SCH (09:16)
[2018-06-06] MEDS: NICOTINE 14 MG/24 HR PATCH.TD24 TD SCH (09:17)
--- NOTE | 2018-06-06 12:13 | PDOC DISCHARGE SUMMARY ---
General - Admit/Disc Date/PCP Admission Date/Primary Care Provider: 06/04/18 05:41 LUIS CARLOS SCHNEIDER NP Discharge Date: 06/06/18 - Discharge Diagnosis (1) Acute interstitial pneumonia Is this a current diagnosis for this admission?: Yes Summary: 06/06/1998 [id number] female admitted with acute respiratory failure with hypoxia CT scan shows acute interstitial pneumonia patient was placed on Levaquin 500 mg IV daily. Patient is afebrile with a temperature of 98.5 pulse rate 75 and sputum culture shows Moraxella group B streptococcus. Patient's pulse ox is 95% on 1 L. Plan to discharge her on levofloxacin 500 mg p.o. daily for 5 days. She was strongly advised to follow-up with primary care physician in 1 week. She says she has no PCP but she is going to find one. (2) Acute respiratory failure with hypoxia Is this a current diagnosis for this admission?: Yes Summary: Improved with current regimen, now off supplemental O2 - Current Levaquin 500mg qAM until 06/11 - Continue Symbicort, Xopenex q8 hours, and Albuterol PRN 06/06/2018-patient was admitted with acute on chronic respiratory failure secondary to interstitial pneumonia and underlying COPD exacerbation. Pulse ox are improved pulse ox is 95% on 1 L. Acute respiratory failure with hypoxia is resolved. (3) Hypertension Is this a current diagnosis for this admission?: Yes Summary: 06/06/2018-patient came in with high blood pressures she was treated with lisinopril 10 mg p.o. daily, metoprolol 100 mg p.o. daily, hydralazine 10 mg IV every 6 as needed for systolic blood pressure both over 60. Blood pressure today is 147/72. Denies any headaches dizziness or chest pains. Plan is to discharge her home on lisinopril 10 mg daily and metoprolol 100 mg p.o. daily. Low-salt diet was advised. (4) Hypokalemia Is this a current diagnosis for this admission?: Yes Summary: 06/06/2018 patient was admitted with hypokalemia she is on potassium supplementation 20 mg p.o. daily. Today's potassium is 5.2. Potassium supplementation was discontinued. hypokalemia is resolved. (5) Tobacco use disorder, moderate, dependence Is this a current diagnosis for this admission?: Yes Summary: 06/06/2018-patient has history of COPD secondary to chronic smoking. Prescription was given for nicotine patches. Smoking counseling was advised and strongly recommended to discontinue smoking. - Additional Information Resuscitation Status: Full Code Discharge Diet: Cardiac Discharge Activity: Activity As Tolerated Prescriptions: Levofloxacin [Levaquin 500 mg Tablet] 500 mg PO Q6AM #5 tablet Lisinopril [Prinivil 10 mg Tablet] 10 mg PO DAILY #30 tablet Metoprolol Succinate [Toprol Xl 50 mg Tab.sr] 100 mg PO DAILY #30 tab.sr.24h Nicotine [Nicoderm 14 mg/24 Hr Transdermal Patch] 1 each TD DAILY #30 patch.td24 Home Medications: Levofloxacin [Levaquin 500 mg Tablet] 500 mg PO Q6AM #5 tablet 06/06/18 Lisinopril [Prinivil 10 mg Tablet] 10 mg PO DAILY #30 tablet 06/06/18 Metoprolol Succinate [Toprol Xl 50 mg Tab.sr] 100 mg PO DAILY #30 tab.sr.24h 06/06/18 Nicotine [Nicoderm 14 mg/24 Hr Transdermal Patch] 1 each TD DAILY #30 patch.td24 06/06/18 History of Present Illness History of Present Illness: CHARMAINE PALMA is a 52 year old female 52 year old female who presented to the emergency room with a 6-day history of progressively worsening dyspnea with cough. She admits that she began having moderate dyspnea 6 days ago, only occurring with exertion and it has gradually progressed to severe dyspnea for the last 2 days being present at rest and with exertion. In the emergency room she her dyspnea has been accompanied by a harsh paroxysmal cough that is been productive of small amounts of thin yellowish mucus at times. Her cough has been increasing in frequency and in intensity to the point where it is now also severe. She denies all other accompanying symptoms with the exception of anorexia and polydipsia due to increased thirst since the onset of the illness. She denies prior similar episodes and has not identified any aggravating or ameliorating factors for her dyspnea other than she feels more short of breath and has an increased cough with any attempted smoking cigarettes. In the emergency room she was found to be significantly hypoxic and required continued oxygen support despite multiple nebulizer treatments and the administration of Solu-Medrol. Because of the patient's hypoxic respiratory failure she was admitted to the hospital for further evaluation and treatment. Physical Exam Vital Signs: Temp Pulse Resp BP Pulse Ox 98.5 F 75 16 149/62 H 95 06/06/18 11:41 06/06/18 11:41 06/06/18 11:41 06/06/18 11:41 06/06/18 11:41 Intake & Output 06/05/18 06/06/18 06/07/18 06:59 06:59 06:59 Intake Total 2737 2155 200 Balance 2737 2155 200 Weight 58.1 kg 58.1 kg General appearance: PRESENT: no acute distress Head exam: PRESENT: atraumatic Eye exam: PRESENT: PERRLA Mouth exam: PRESENT: moist, tongue midline Neck exam: ABSENT: carotid bruit, JVD, lymphadenopathy, thyromegaly Respiratory exam: PRESENT: decreased breath sounds Cardiovascular exam: PRESENT: tachycardia GI/Abdominal exam: PRESENT: normal bowel sounds, soft. ABSENT: distended, guarding, mass, organolmegaly, rebound, tenderness Extremities exam: PRESENT: full ROM. ABSENT: calf tenderness, clubbing, pedal edema Neurological exam: PRESENT: alert, awake, oriented to person, oriented to place, oriented to time, oriented to situation, CN II-XII grossly intact. ABSENT: motor sensory deficit Psychiatric exam: PRESENT: appropriate affect, normal mood. ABSENT: homicidal ideation, suicidal ideation Results Laboratory Results: 06/06/18 05:07 06/06/18 05:07 06/06/18 06/06/18 05:07 05:07 WBC 11.6 H RBC 4.65 Hgb 13.3 Hct 39.4 MCV 85 MCH 28.5 MCHC 33.6 RDW 14.5 H Plt Count 316 Seg Neutrophils % 57.8 Lymphocytes % 34.1 Monocytes % 7.1 Eosinophils % 0.4 Basophils % 0.6 Absolute Neutrophils 6.7 Absolute Lymphocytes 4.0 Absolute Monocytes 0.8 Absolute Eosinophils 0.0 Absolute Basophils 0.1 Sodium 142.8 Potassium 5.2 H Chloride 106 Carbon Dioxide 27 Anion Gap 10 BUN 16 Creatinine 0.67 Est GFR ( Amer) > 60 Est GFR (Non-Af Amer) > 60 Glucose 99 Calcium 9.5 Magnesium 1.9 06/03/18 16:45 Throat Throat Culture - Final NORMAL JOVITA 06/03/18 17:45 Sputum Gram Stain - Final 06/03/18 17:45 Sputum Sputum Culture - Final Morax.(Branhamella)Catarrhalis Group F Beta Streptococcus Normal Jovita 06/03/18 19:17 NT-Pro-B Natriuret Pep 121 Impressions: Chest X-Ray 06/03/18 16:40 IMPRESSION: Minimal bibasilar fine heterogeneous and interstitial opacity, of uncertain acute significance. This may reflect mild infection or edema or alternately chronic interstitial change. CT can be used to further evaluate if desired and as indicated by clinical signs or symptoms. . Chest CT 06/03/18 18:19 IMPRESSION: Constellation of findings are most consistent with a multi lobar atypical pneumonia. Qualifiers - * PATIENT BEING DISCHARGED WITH ANY OF THE FOLLOWING DIAGNOSIS: No VTE patient discharged on overlapping Therapy?: No
[2018-06-06 12:39] VITALS: BP 143/84
== END 2018-06-06 13:50 | disposition home or self-care (01) | DRG 196 ==
LOC: ER 15:34 → EH 06-04 05:41 → 3W 06-04 12:08 → 4N 06-06 00:35
PROVIDERS: ADMIT Emergency Medicine; ATTEND Emergency Medicine
DX: J84.114 Acute interstitial pneumonitis (principal); J96.01 Acute respiratory failure with hypoxia; J44.1 Chronic obstructive pulmonary disease with (acute) exacerbation; E87.6 Hypokalemia; F17.210 Nicotine dependence, cigarettes, uncomplicated; I10 Essential (primary) hypertension; B95.4 Other streptococcus as the cause of diseases classified elsewhere; B96.89 Other specified bacterial agents as the cause of diseases classified elsewhere; Z82.49 Family history of ischemic heart disease and other diseases of the circulatory system; Z83.3 Family history of diabetes mellitus; Z88.0 Allergy status to penicillin; Z23 Encounter for immunization
CPT/HCPCS: 36415; 71046; 71250; 80048; 80053; 80061; 83036; 83735; 83880; 84439; 84443; 84481; 85025; 87040; 87070; 87077; 87205; 87880; 90471; 90686; 93005; 93010; G0008; J0360; J0696; J1644; J2920; J3475; J3480; J3490; J7030; J7512; J7620